=== PATIENT | female | born 1995 | race Caucasian/White ===

== ENCOUNTER → 2016-03-30 | Outpatient (CLI) | payer OTHER ==
[~2016-03-30] MED LIST: ANUS2.5C2 PR; DOCU10CA PO; MOM30SS PO; TYLE167L PO
--- NOTE | 2016-03-30 15:25 | REP ---
Clinical: Anatomical evaluation. Comparison: 01/02/2016 . Findings: Examination demonstrates a single live intrauterine in breech presentation. motion is identified by technologist. Placenta is noted posterior and grade the Z without evidence for placenta previa or abruption. Amniotic fluid volume is normal. Cervix measures row 3.7 cm in length and appears closed. No evidence for nuchal cord. Gestational age by LMP 20 weeks 5 days with LISA 08/12/2016. Gestational age by current measurements 19 weeks 5 days with LISA 08/19/2016 . FHR equals 128 beats per minute. BPD 4.1 cm 18 weeks 3 days HC 17.3 cm 19 weeks 6 days AC 14.8 cm 20 weeks 0 days FL 3.2 cm 20 weeks 0 days HL 3.0 cm 19 weeks 6 days HC/AC ratio 1.17 Estimated weight 324 grams ( 23rd percentile). Anatomical assessment demonstrates normal structures including cranium, choroid plexus, cavum, cerebellum/posterior fossa, facial features, lungs, diaphragm, stomach, cord insertion/three-vessel cord, kidneys/bladder, spine, and extremities. Impression: Single live intrauterine in breech presentation demonstrating appropriate interval growth. Limited evaluation of the heart and ventricular outflow tracts noted. Remainder of the anatomical assessment is complete and normal. Signed by Phoenix Baker MD 03/30/2016 03:17 P
== END ==
LOC: M RAD 14:08
PROVIDERS: ATTEND Advanced Practice Midwife
DX: Z34.82 Encounter for supervision of other normal pregnancy, second trimester (principal)

== ENCOUNTER → 2016-04-15 | Outpatient (CLI) | payer OTHER ==
--- NOTE | 2016-04-15 18:07 | REP ---
OB ULTRASOUND: REASON FOR EXAM: Followup anatomy. Prior examination of 03/30/2016 failed to optimally visualize four chamber heart and outflow tracts. Multiple ultrasonographic images of the gravid uterus show a single living intrauterine gestation in the cephalic presentation. Doppler interrogation of the heart shows a heart rate of 144 beats per minute. The placenta is posterior and not low lying. The subjective amniotic fluid volume is within normal limits. The cervix measured approximately 4 cm in length and is closed. Four chamber heart and both right and left ventricular outflow tracts were seen normally completing the anatomical screen. BPD 5 cm = 21 weeks 2 days HC 19 cm = 21 weeks 2 days AC 16.8 cm = 21 weeks 5 days FL 3.9 cm = 22 weeks 3 days Estimated weight is 463 grams which is within the 66th percentile for a 21 week 3 day gestational age. IMPRESSION: Single living intrauterine gestation as described above with an estimated gestational age of 21 weeks 5 days via composite criteria and an estimated date of delivery of 08/21/2016 by today's exam. anatomical screen was completed with a normal appearing four chamber heart and normal appearing right and left ventricular outflow tracts. Signed by Pola Waite DO 04/16/2016 11:15 A
== END ==
LOC: M RAD 13:50
PROVIDERS: ATTEND Advanced Practice Midwife
DX: Z34.82 Encounter for supervision of other normal pregnancy, second trimester (principal); Z3A.21 21 weeks gestation of pregnancy

== ENCOUNTER 2016-06-07 11:14 | Outpatient (CLI) | payer OTHER ==
[2016-06-07 11:40] VITALS: BP 135/81
[2016-06-07] MEDS ORDERED: ACET50TA PO (11:51)
[2016-06-07] MEDS ORDERED: PERCOCET 5MG/325MG TAB PO ONE (12:00)
--- NOTE | 2016-06-07 12:36 | REP ---
Bilateral renal ultrasound: The kidneys are normal size. The right kidney measures 3.7 x 4.6 of 5.7 cm. Left kidney measures 11.4 by 4.6 of 5.2 cm. The renal cortical echogenicity is normal bilaterally. There is no hydronephrosis on the right on the left. No renal calculi are identified by ultrasound. There is a 1.7 cm cyst in the upper pole of the right kidney. There are no cysts in the left kidney. No renal masses are identified on the right on the left. Bladder ultrasound: The bladder appears adequately distended. There are bilateral ureteral jets into the urinary bladder with color Doppler ultrasound assessment.. No bladder wall masses are identified. Impression: There is no hydronephrosis. There are no renal calculi. With color Doppler assessment there are bilateral ureteral jets into the urinary bladder. There is a 1.7 cm right renal upper pole cyst. The kidneys and bladder are otherwise unremarkable. During the examination is noted at the the patient is . The heart rate is 160 beats per minute. Signed by Darrell Mcgarry MD 06/07/2016 12:27 P
[2016-06-07] MEDS ORDERED: OXYC1TAB23 PO (13:24)
== END 2016-06-07 13:32 | disposition home or self-care (01) ==
LOC: M LDO 11:14
PROVIDERS: ATTEND Specialist
DX: O26.893 Other specified pregnancy related conditions, third trimester (principal); Z3A.30 30 weeks gestation of pregnancy; M46.1 Sacroiliitis, not elsewhere classified

== ENCOUNTER → 2016-07-07 | Outpatient (CLI) | payer OTHER ==
[~2016-07-07] MED LIST changes: +ACET50TA PO; +OXYC1TAB23 PO
== END ==
LOC: M SMT 15:21
PROVIDERS: ATTEND Advanced Practice Midwife
DX: O99.843 Bariatric surgery status complicating pregnancy, third trimester (principal)

== ENCOUNTER → 2016-07-14 | Outpatient (CLI) | payer OTHER ==
--- NOTE | 2016-07-14 21:03 | REP ---
Clinical: Growth evaluation. Comparison: 04/15/2016 . Findings: Examination demonstrates a single live intrauterine in cephalic presentation. motion is identified by technologist. Placenta is noted posteriorly and grade one without evidence for placenta previa or abruption. Amniotic fluid volume is normal. Cervix measures 3.1 cm in length and appears closed. No evidence for nuchal cord. Gestational age by first US 34 weeks 2 days with LISA 08/23/2016 . Gestational age by current measurements 33 weeks 1 day with LISA 08/31/2016 . FHR equals 139 beats per minute. BPD 8.0 cm 32 weeks 0 days HC 30.4 cm 33 weeks 5 days AC 29.9 cm 33 weeks 6 days FL 6.6 cm 33 weeks 6 days HL 5.9 cm 34 weeks 1 day HC/AC ratio 1.02 Estimated weight 2245 grams ( 36 percentile). Amniotic fluid index equals 14.7 cm (8.1 - 24 20). Umbilical cord SD ratio equals 1.81 (2.00 - 3.00). Impression: 1. Single live intrauterine in cephalic presentation demonstrating appropriate interval growth. 2. Umbilical cord SD ratio minimally below normal range. Signed by Phoenix Baker MD 07/14/2016 08:54 P
== END ==
LOC: M RAD 14:17
PROVIDERS: ATTEND Advanced Practice Midwife
DX: K91.2 Postsurgical malabsorption, not elsewhere classified (principal); Z3A.33 33 weeks gestation of pregnancy

== ENCOUNTER → 2016-07-21 | Outpatient (REF) | payer OTHER | LOC: M LAB REF 17:14 | PROVIDERS: ATTEND Advanced Practice Midwife | DX: Z34.83 Encounter for supervision of other normal pregnancy, third trimester (principal) ==

== ENCOUNTER 2016-07-31 16:09 | Outpatient (CLI) | payer OTHER ==
[~2016-07-31] VITALS: Ht 154.9 cm; Wt 97.0 kg
[2016-07-31 16:26] VITALS: BP 115/58
== END 2016-07-31 18:11 | disposition home or self-care (01) ==
LOC: M LDO 16:09
PROVIDERS: ATTEND Specialist
DX: O26.893 Other specified pregnancy related conditions, third trimester (principal); Z3A.36 36 weeks gestation of pregnancy; N89.9 Noninflammatory disorder of vagina, unspecified; R10.9 Unspecified abdominal pain

== ENCOUNTER → 2016-07-31 | Outpatient (CLI) | payer OTHER ==
--- NOTE | 2016-07-31 17:09 | REP ---
Third trimester obstetrical ultrasound: There is a single intrauterine gestation in a vertex presentation. There is movement and cardiac activity. The heart rate is 153 beats per minute. The placenta is posterior. There is no placenta previa or abruptio. The placenta demonstrates grade III maturity. The amniotic fluid volume subjectively is normal. The amniotic fluid index 10.9 (7.6 - 24.6). The cervix is 1.7 cm length. By today's ultrasound the gestational age is 35 weeks 2 days with an LISA of 09/02/2016. By the first ultrasound during this gestation the gestational age is 36 weeks 5 days and by LMP 38 weeks 2 days. weight is 2605 grams (5 pounds, 11 ounces). This is the 28th percentile for 30 weeks 5 days and the 11th percentile for 30 dB few days. Umbilical artery Doppler assessment: SD ratio 1.81 (1.74 - 2.74). Resistive index 0.45 five (0.59 - 0.75). Umbilical artery diastolic flow velocity 30.8 cm/sec. Resistive index is slightly below the normal range. The ST ratio and diastolic flow velocity are in the normal range. Signed by Darrell Mcgarry MD 07/31/2016 05:00 P
== END ==
LOC: M RAD 15:26
PROVIDERS: ATTEND Advanced Practice Midwife
DX: O99.843 Bariatric surgery status complicating pregnancy, third trimester (principal); Z3A.36 36 weeks gestation of pregnancy

== ENCOUNTER 2016-08-13 09:53 | Inpatient (IN) | payer OTHER ==
[~2016-08-13] VITALS: Ht 154.9 cm; Wt 12.0 kg
[2016-08-13 10:26] VITALS: BP 137/77
[2016-08-13] MEDS ORDERED: PROMETHAZINE INJ 25 MG/ML VIAL (J2550) IV PRN (13:45)
[2016-08-13] MEDS ORDERED: BUTORPHANOL 2 MG/ML INJ (J0595) IV ONE (14:00)
[2016-08-13 14:16] VITALS: BP 121/61
[2016-08-13] MEDS ORDERED: OXYTOCIN 30 UNITS IN 0.9% NaCl 500ML IV BAG (J2590) As Ordered ONE (14:18)
[2016-08-13 14:27] VITALS: BP 147/85
[2016-08-13 14:28] LABS: MEAN CORPUSCULAR HGB CONC 30.9 g/dl (32.0-36.5); MEAN CORPUSCULAR VOLUME 64.8 fl (80.0-96.0); RED CELL DISTRIBUTION WIDTH 17.4 % (11.5-14.5)
[2016-08-13 14:42] VITALS: BP 151/89
[2016-08-13] MEDS ORDERED: OXYTOCIN DRIP 30 UNITS in APPROPRIATE DILUENT 1 EA IV SCH (15:25)
[2016-08-13] MEDS ORDERED: RHOGAM 300 MCG (1500 IU) INJ (J2790) IM SCH (15:30)
[2016-08-13] MEDS ORDERED: MOM 30ML SUSPENSION UDC PO PRN (15:30)
[2016-08-13] MEDS ORDERED: ANUSOL HC CREAM 30GM TOP PRN (15:30)
[2016-08-13] MEDS ORDERED: ACETAMINOPHEN 500 MG TAB PO PRN (15:30)
[2016-08-13] MEDS ORDERED: METHYLERGONOVINE MALEATE 0.2 MG TAB PO PRN (15:30)
[2016-08-13] MEDS ORDERED: MEASLES,MUMPS,RUBELLA VACCINE INJ (MMR-II) (90707) SC SCH (15:30)
[2016-08-13] MEDS ORDERED: DOCUSATE SODIUM 100 MG CAP PO PRN (15:30)
[2016-08-13] MEDS ORDERED: DIBUCAINE 1% OINTMENT 30GM TOP PRN (15:30)
--- NOTE | 2016-08-13 18:38 | DN ---
DATE: 08/13/2016 TIME OF : 1420. GENDER: Female. SCORES: 8 and 9. WEIGHT: 2674 grams, 6 pounds 2 ounces. ANESTHESIA: None. LACERATION: None. COUNTS: 5 laparotomy sponges accounted for prior to and after delivery. ESTIMATED BLOOD LOSS: 300 mL. DELIVERY NOTE: On 08/13/2016, at 1420, Ms. Waite, a 21-year-old 2, now para 2, had a spontaneous vaginal delivery of a liveborn female infant, scores 8 and 9, and weight 6 pounds, 2 ounces or 2674 grams. Head was delivered STEPHANIE over an intact peritoneum, followed by delivery of right anterior shoulder, left posterior shoulder and corpus. was handed to mother with good cry. Cord was clamped times two and was cut by patients support person under my direction. Cord blood was obtained. Placenta was then drained and delivered grossly intact. A premixed bag of 500 mL of normal saline with 30 units of Pitocin was bolused, along with uterine massage. Her uterus was firm. On inspection the cervix, vagina, perineum were grossly intact and hemostatic. Mother and baby to recovery in stable condition. Mom has decided to name her daughter
[2016-08-13 18:41] VITALS: BP 150/72
--- NOTE | 2016-08-13 18:46 | HPE ---
DATE OF ADMISSION: 08/13/2016 REASON FOR ADMISSION: Labor. HISTORY OF THE PRESENT ILLNESS: Ms. aWite is a 21-year-old, 2, para 1 , who presents at 38 weeks 4 days estimated gestational age by a first trimester ultrasound, here with complaints of contractions. She reports active movements. Denies any vaginal bleeding or leakage of fluid. course has been unremarkable. She initiated care in her first trimester and has been appropriate throughout. PAST MEDICAL HISTORY: She has a history of asthma. PAST SURGICAL HISTORY: She has had gastric bypass in 2012. PAST OBSTETRICAL HISTORY: She has had one delivery at 35 weeks. She has proven to 5 pounds 11 ounces. SOCIAL HISTORY: Denies any alcohol, tobacco or drug use during her . PHYSICAL EXAMINATION: Her vital signs are stable. She has a category 1 heart rate tracing with contractions on tocometer. General Appearance: Appears to be uncomfortable with contractions. No acute distress. Her lungs were clear to auscultation bilaterally. Cardiovascular: Heart regular rate and rhythm. Abdomen: Soft, gravid, nontender. Cervical Exam: She is 3-4 cm dilated, 80% effaced, -2 station. Shortly after exam, she had spontaneous rupture, meconium-stained amniotic fluid. LABORATORY: Her blood type is A negative, rubella is immune, RPR is nonreactive. Hepatitis surface antigen is negative. HIV is negative. Hepatitis C was nonreactive. Chlamydia and Gonorrhea screens were negative. She is GBS negative. ASSESSMENT: 1. This patient is a 21-year-old 2, para 1 at 38 weeks and 4 days by first trimester ultrasound, here with spontaneous rupture of membranes. 2. Reassuring status. PLAN: 1. Admit to labor and delivery. CBC, RPR, type and screen. 2. Anticipate spontaneous vaginal delivery. MTDD
[2016-08-14 06:08] VITALS: BP 131/83
[2016-08-14] MEDS: PRENATAL VITAMINS CHEWABLE TABLET PO SCH (07:54)
[2016-08-14 18:00] VITALS: BP 130/70
[2016-08-15 06:00] VITALS: BP 116/77
[2016-08-15] MEDS: PRENATAL VITAMINS CHEWABLE TABLET PO SCH (08:03)
[2016-08-15] MEDS ORDERED: ACET50TA PO (12:39)
[2016-08-15] MEDS ORDERED: PRENTAB9 PO (12:39)
== END 2016-08-15 13:15 | disposition home or self-care (01) | DRG 560 ==
LOC: M LDO 09:53 → M LDI 13:29 → M OBS 17:03
PROVIDERS: ADMIT Obstetrics & Gynecology; ATTEND Obstetrics & Gynecology
PROC: 10E0XZZ Delivery of Products of Conception, External Approach (ICD-10-PCS; principal; 2016-08-13)
DX: O77.0 Labor and delivery complicated by meconium in amniotic fluid (principal); Z37.0 Single live birth; Z3A.38 38 weeks gestation of pregnancy; Z87.51 Personal history of pre-term labor

== ENCOUNTER → 2017-11-01 | Outpatient (CLI) | payer OTHER ==
[2017-11-01 18:38] LABS: HCG, SERUM QUANTITATIVE 5 MIU/ML
== END ==
LOC: M SMT 14:06
DX: O02.1 Missed abortion (principal)
CPT/HCPCS: 84702

== ENCOUNTER → 2018-10-07 | Outpatient (CLI) | payer OTHER ==
[~2018-10-07] MED LIST changes: -ACET50TA PO; +MAPA500T2 PO; +PRENTAB9 PO
[2018-10-07 18:01] LABS: BASO # 0.1 10^3/uL (0.0-0.2); BASO % 0.6 % (0.0-1.0); EOS # 0.1 10^3/uL (0.0-0.50); EOS % 1.2 % (0.0-3.0); HEMOGLOBIN 8.6 g/dl (12.0-15.5); LYMPH # 2.6 10^3/uL (1.5-6.5); LYMPH % 22.6 % (24.0-44.0); MEAN CORPUSCULAR HEMOGLOBIN 18.1 pg (27.0-33.0); MEAN CORPUSCULAR HGB CONC 28.7 g/dl (32.0-36.5); MONO # 0.7 10^3/uL (0.0-0.8); MONO % 5.9 % (0.0-5.0); NEUTROPHILS # 8.1 10^3/uL (1.8-7.7); NEUTROPHILS % 69.4 % (36.0-66.0); PLATELET COUNT, AUTOMATED 456 10^3/uL (150-450); RED BLOOD COUNT 4.76 10^6/uL (4.00-5.40); WHITE BLOOD COUNT 11.6 10^3/uL (4.0-10.0)
[2018-10-10 11:22] LABS: HIV 1&2 SCREEN CENTAUR NEGATIVE (NEGATIVE); RUBELLA IgG QUALITATIVE IMMUNE (IMMUNE)
== END ==
LOC: M SMT 14:43
PROVIDERS: ATTEND Advanced Practice Midwife
DX: Z34.80 Encounter for supervision of other normal pregnancy, unspecified trimester (principal); Z3A.00 Weeks of gestation of pregnancy not specified

== ENCOUNTER → 2018-10-25 | Outpatient (REF) | payer OTHER ==
[2018-10-25 22:51] LABS: CHLAMYDIA DNA AMPLIFICATION NEGATIVE (NEGATIVE); GC DNA AMPLIFICATION NEGATIVE (NEGATIVE)
== END ==
LOC: M LAB REF 17:06
PROVIDERS: ATTEND Advanced Practice Midwife
DX: O99.841 Bariatric surgery status complicating pregnancy, first trimester (principal); Z3A.00 Weeks of gestation of pregnancy not specified

== ENCOUNTER → 2018-12-02 | Outpatient (CLI) | payer OTHER | LOC: M SMT 10:01 | PROVIDERS: ATTEND Advanced Practice Midwife | DX: Z34.82 Encounter for supervision of other normal pregnancy, second trimester (principal) ==

== ENCOUNTER → 2018-12-16 | Outpatient (CLI) | payer OTHER ==
--- NOTE | 2018-12-16 15:34 | REP ---
Clinical: Anatomical evaluation. Comparison: None . Findings: Examination demonstrates a single live intrauterine in variable presentation. motion is identified by technologist. Placenta is noted posterior and grade zero without evidence for placenta previa or abruption. Amniotic fluid volume is normal. Cervix measures 4.0 cm in length and appears closed. 1 cm Nabothian cyst noted. No evidence for nuchal cord. Gestational age by LMP 18 weeks 3 days with LISA 05/16/2019 . Gestational age by current measurements 18 weeks 3 days with LISA 05/16/2019 . FHR equals 146 beats per minute. BPD 4.0 cm 18 weeks 0 days HC 15.2 cm 18 weeks 1 day AC 13.1 cm 18 weeks 4 days FL 2.8 cm 18 weeks 4 days HL 2.7 cm 18 weeks 5 days HC/AC ratio 1.17 Estimated weight 244 grams ( 51st percentile). Anatomical assessment demonstrates normal structures including cranium, choroid plexus, cavum, cerebellum/posterior fossa, facial features, lungs, four-chamber heart, diaphragm, stomach, cord insertion/three-vessel cord, kidneys/bladder, and extremities. Impression: 1. Single live intrauterine in variable presentation demonstrating appropriate interval growth. 2. Limited evaluation of the cardiac ventricular outflow tracts and spine due to positioning. Remainder of the anatomical assessment is complete and normal. 3. 1 cm cervical cyst consistent with Nabothian cysts. Electronically Signed by Phoenix Baker MD 12/16/2018 03:25 P
== END ==
LOC: M RAD 13:52
PROVIDERS: ATTEND Advanced Practice Midwife
DX: Z34.82 Encounter for supervision of other normal pregnancy, second trimester (principal)

== ENCOUNTER → 2019-01-27 | Outpatient (CLI) | payer OTHER | LOC: M WHC 10:20 | PROVIDERS: ATTEND Advanced Practice Midwife | DX: Z34.92 Encounter for supervision of normal pregnancy, unspecified, second trimester (principal); Z53.9 Procedure and treatment not carried out, unspecified reason ==

== ENCOUNTER → 2019-02-24 | Outpatient (CLI) | payer OTHER ==
--- NOTE | 2019-02-24 14:35 | REP ---
OBSTETRIC SONOGRAPHY: HISTORY: Supervision of . Followup anatomy. Comparison study January 26, 2019. FINDINGS: Scanning through the gravid uterus demonstrates a viable single intrauterine gestation in a cephalic lie. motion is observed and heart rate is recorded at 147 beats per minute. A posterior grade 1 placenta is seen without evidence of previa. Amniotic fluid is subjectively normal. Closed cervical length measures 2.8 cm. No extrauterine abnormalities observed. There has been appropriate interval growth. No anomaly is seen. The following anatomic structures are identified and felt to be unremarkable: cranium, choroid plexus, cavum, cerebellum posterior fossa, face and profile, four-chamber heart with left and right ventricular outflow tract views, diaphragm, left-sided stomach, three-vessel cord, kidneys and bladder, spine. Biometry Chart: BPD 6.8 cm = 27.4 weeks HC 26.3 cm = 28.6 weeks AC 23.7 cm = 28.0 weeks FL 5.8 cm = 30.3 weeks HC/AC ratio normal 1.11. Cephalic index normal 0.70. Estimated weight 1287 grams/2 pounds 13 ounces/51st percentile for 28.4 weeks. RUTHIE normal 18.2 cm. Closed cervical length 2.7 cm. IMPRESSION: Viable single intrauterine gestation at 28.5 weeks by today's composite sonographic criteria. Expected gestational age estimate based on prior sonography is 28.4 weeks. LISA by prior sonography 05/16/2019. In conjunction with prior study, anatomic survey is felt to be complete. There is appropriate interval growth.
== END ==
LOC: M WHC 10:24
PROVIDERS: ATTEND Advanced Practice Midwife
DX: Z34.92 Encounter for supervision of normal pregnancy, unspecified, second trimester (principal); Z36.2 Encounter for other antenatal screening follow-up; Z3A.28 28 weeks gestation of pregnancy

== ENCOUNTER → 2019-02-24 | Outpatient (CLI) | payer OTHER ==
[2019-02-24 18:35] LABS: HEMATOCRIT 29.2 % (36.0-47.0); HEMOGLOBIN 8.1 g/dl (12.0-15.5); MEAN CORPUSCULAR HEMOGLOBIN 17.6 pg (27.0-33.0); MEAN CORPUSCULAR HGB CONC 27.7 g/dl (32.0-36.5); MEAN CORPUSCULAR VOLUME 63.6 fl (80.0-96.0); PLATELET COUNT, AUTOMATED 455 10^3/uL (150-450); RED BLOOD COUNT 4.59 10^6/uL (4.00-5.40)
[2019-02-24 18:42] LABS: CALCIUM LEVEL 8.9 MG/DL (8.5-10.1)
== END ==
LOC: M PLALAB 13:45
PROVIDERS: ATTEND Advanced Practice Midwife
DX: Z98.84 Bariatric surgery status (principal)

== ENCOUNTER 2019-03-03 07:55 | Outpatient (CLI) | payer OTHER ==
[~2019-03-03] VITALS: Ht 152.4 cm; Wt 107.3 kg
[2019-03-03 08:10] VITALS: BP 132/83
[2019-03-03] MEDS ORDERED: IRON SUCROSE 500 MG in NS 250 ML OVER 4 HRS IV ONE ×2 (08:15→09:00)
[2019-03-03 09:07] VITALS: BP 126/63
[2019-03-03 10:09] VITALS: BP 117/60
[2019-03-03 11:14] VITALS: BP 143/87
[2019-03-03 12:20] VITALS: BP 134/64
[2019-03-03 12:44] VITALS: BP 118/58
== END 2019-03-03 12:45 | disposition home or self-care (01) ==
LOC: M INFU 07:55
PROVIDERS: ATTEND Advanced Practice Midwife
DX: D64.9 Anemia, unspecified (principal); Z88.6 Allergy status to analgesic agent
CPT/HCPCS: 96365; 96366; J1756

== ENCOUNTER → 2019-03-24 | Outpatient (CLI) | payer OTHER ==
--- NOTE | 2019-03-24 17:45 | REP ---
Clinical: Growth evaluation. Comparison: 02/24/2019 . Findings: Examination demonstrates a single live intrauterine in cephalic presentation. motion is identified by technologist. Placenta is noted posterior and grade I without evidence for placenta previa or abruption. Amniotic fluid volume is normal. Cervix measures 2.8 cm in length and appears closed. No evidence for nuchal cord. Gestational age by LMP 32 weeks 3 days with LISA 05/16/2019 . Gestational age by current measurements 32 weeks 2 days with LISA 05/17/2019 . FHR equals 143 beats per minute. BPD 7.8 cm 31 weeks 2 days HC 29.9 cm 33 weeks 1 day AC 27.2 cm 31 weeks 2 days FL 6.5 cm 33 weeks 4 days HL 5.6 cm 32 weeks 4 days HC/AC ratio 1.10 Estimated weight 1915 grams ( 39th percentile). Amniotic fluid index: 12.1 cm (8.5 - 24.3). Impression: Single live intrauterine in cephalic presentation demonstrating appropriate interval growth. No gross abnormalities are identified. Electronically Signed by Phoenix Baker MD 03/24/2019 05:38 P
== END ==
LOC: M WHC 13:46
PROVIDERS: ATTEND Advanced Practice Midwife
DX: O99.843 Bariatric surgery status complicating pregnancy, third trimester (principal); Z3A.32 32 weeks gestation of pregnancy

== ENCOUNTER → 2019-04-17 | Outpatient (REF) | payer OTHER | LOC: M SFHCWAGY 10:12 | PROVIDERS: ATTEND Advanced Practice Midwife | DX: O99.843 Bariatric surgery status complicating pregnancy, third trimester (principal) ==

== ENCOUNTER → 2019-04-26 | Outpatient (CLI) | payer OTHER ==
--- NOTE | 2019-04-27 07:41 | REP ---
Clinical: Anatomical evaluation. Comparison: 03/24/2019 . Findings: Examination demonstrates a single live intrauterine in cephalic presentation. motion is identified by technologist. Placenta is noted posterior and grade I I without evidence for placenta previa or abruption. Amniotic fluid volume is normal. Cervix measures 2.7 cm in length and appears closed. No evidence for nuchal cord. Gestational age by LMP 37 weeks 1 day with LISA 05/16/2019 . Gestational age by current measurements 36 weeks 2 days with LISA 05/22/2019 . FHR equals 153 beats per minute. Estimated weight 3034 grams ( 49th percentile). Amniotic fluid index: 13.9 cm Impression: single live intrauterine in cephalic presentation demonstrating appropriate interval growth. No gross abnormalities are identified.
== END ==
LOC: M WHC 13:38
PROVIDERS: ATTEND Advanced Practice Midwife
DX: O99.333 Smoking (tobacco) complicating pregnancy, third trimester (principal); F17.200 Nicotine dependence, unspecified, uncomplicated; O99.843 Bariatric surgery status complicating pregnancy, third trimester; Z3A.37 37 weeks gestation of pregnancy

== ENCOUNTER 2019-05-05 05:20 | Inpatient (IN) | payer OTHER ==
[~2019-05-05] VITALS: Ht 154.9 cm; Wt 113.3 kg
[2019-05-05] VITALS (10 sets, daily range): BP systolic 124–147; BP diastolic 60–79
--- NOTE | 2019-05-05 09:01 | HPEPDOC ---
Obstetrical History & Physical General Date of Admission May 05, 2019 at 08:38 Primary Care Physician: JORGE GILES CNM History of Present Illness Patient is a 24-year-old female who is a at 38 weeks gestation with an LISA of 05/19/19 based off of her first trimester ultrasound. She initiated care in her first trimester. Her has been complicated by a history of delivery, PCOS, obesity, and gastric bypass. She received Violet injections for her history of delivery. She presents with complaints of contractions. She denies vaginal bleeding or leaking of fluid. She reports active movement. Chief Complaint: Active Labor Information Provided By: Patient Age: 24 : 4 Term: 1 Pre-term: 1 Abortions: 1 Livin Care Care: Good Care Dating Final EDC: May 19, 2019 Final EDC by: 1st trimester (US) EGA at Admission: 38 Antepartum Course Diagnos(e)s history of delivery obesity PCOS Prior bariatric surgery Height (inches): 61 Pre- weight (lbs.): 231 Admission Weight (lbs.): 249 Change in Weight (lbs.): 18 Past Medical History Past Obstetrical History #1: Past Obstetrical History: Primgravida Gestation: 35 Type of Delivery: Spontaneous Vaginal Del. (October 2013) Sex of Infant: Male (5 lbs 11 oz. ) Weight of (grams): 2317 Complications: Yes Past Obstetrical History #2: Past Obstetrical History: Multigravida Gestation: 39 Type of Delivery: Spontaneous Vaginal Del. (07/2016) Sex of Infant: Female (6 lbs 1 oz) Complications: No VISITOR USE ASSISTANT History: Spontaneous , History of STD Past Medical History Medical History Obesity PCOS Surgical History: Other (gastric bypass) Family History Significant Family History: Cancer (breast cancer), Hypertension Social History Marital Status: Single Family situation: Spouse/partner home Psychosocial History: Anxiety, Depression * Smoker: current smoker (vapes) Alcohol: Denies Drugs: denies (has used medical marijuana in the past) Abuse Violence Screening Have you been hit/kicked/slapp: No Have you been sexually assault: No Imunizations Tdap status: current Influenza Status: current Allergies Coded Allergies: amoxicillin (Verified Allergy, Mild, RASH, 03/03/19) azithromycin (Verified Allergy, Mild, RASH, 03/03/19) clavulanic acid (Verified Allergy, Mild, RASH, 03/03/19) ibuprofen (Verified Allergy, Mild, RASH, 03/03/19) naproxen (Verified Allergy, Mild, RASH, 05/05/19) sulfamethoxazole (Verified Allergy, Mild, RASH, 03/03/19) trimethoprim (Verified Allergy, Mild, RASH, 03/03/19) Penicillins (Verified Allergy, Unknown, 03/03/19) Medications No Active Prescriptions or Reported Meds Physical Examination Physical Examination GENERAL: Alert and oriented times three. BREAST: . ABDOMEN: Gravid and non-tender to touch. FETUS: Is vertex (VTX) by sterile vaginal examination (SVE), fetus is vertex (VTX) by Luiz. HEART RATE: Regular rate and rhythm. LUNGS: Clear to auscultation (CTA). EXTREMITIES: No edema. No clonus. Deep tendon reflexes (DTRs) + 2. Vital Signs/I&O Vital Signs Date Time Temp Pulse Resp B/P (MAP) Pulse Ox O2 Delivery O2 Flow Rate FiO2 05/05/19 08:40 98.7 18 05/05/19 05:39 87 135/73 (93) Laboratory Data 24H LABS Laboratory Tests 2 05/05/19 08:39: Serology Scanned Report Hepatitis B Testing Urine Culture: No Growth Pertinent Laboratoy Data Blood Type: A- RBC Antibody Screen: Negative HIV: Negative Hepatitis B: Negative Hepatitis C: Negative Rapid Plasma Reagin: Nonreactive Rubella: Immune Chlamydia/Gonorrhea: Negative Group B Streptococcus: Negative Quad Screen Test: Negative Diag/Inter Therapy Received Violet injections for history of delivery Anatomy Ultrasound Ultrasound Date: Apr 26, 2019 Placenta Location: Posterior Normal Anatomy: Yes Placenta Previa: No Estimated Weight (grams): 3034 Vaginal Examination Dilation: 5 cm (5- cm) Effacement: 100% Station: -2 Cervical Consistency: Soft Cervical Position: Anterior Presentation: Cephalic presentation Position: Vertex (occiput) Assessment Heart Rate (FHR): 130 Variability: Moderate Accelerations: Positive Decelerations: None Tocometer Contractions: Yes Frequency: every 3-7 min. Strength: palpated as moderate Multi-drug resistant Organism: No history of MDRO Assessment/Plan Assessment IUP at 38 weeks gestation active labor Category I FHR tracing GBS negative PCOS Plan Admit to L&D. OOB ad kelsie. Diet: regular. Group B Streptococcus (GBS) negative. Labs and intravenous (IV) per unit protocol. Lactated Ringers (LR): Bolus PRN for distress or if patient desires epidural. Anticipate cervical change and . C-S as appropriate. JORGE GILES CNM May 05, 2019 09:01
[2019-05-05 09:20] LABS: HEMATOCRIT 29.5 % (36.0-47.0); HEMOGLOBIN 8.8 g/dl (12.0-15.5); MEAN CORPUSCULAR HEMOGLOBIN 20.1 pg (27.0-33.0); MEAN CORPUSCULAR HGB CONC 29.8 g/dl (32.0-36.5); MEAN CORPUSCULAR VOLUME 67.5 fl (80.0-96.0); PLATELET COUNT, AUTOMATED 326 10^3/uL (150-450); RED BLOOD COUNT 4.37 10^6/uL (4.00-5.40); WHITE BLOOD COUNT 13.4 10^3/uL (4.0-10.0)
[2019-05-05] MEDS ORDERED: OXYTOCIN 30 UNITS IN 0.9% NaCl 500ML IV BAG (J2590) As Ordered ONE (09:39)
--- NOTE | 2019-05-05 11:26 | IPNPDOC ---
Obstetrical Progress Note Date of Service May 05, 2019 Subjective Patient reports painful contractions. Does not want anything for pain management. Objective Vital Signs Date Time Temp Pulse Resp B/P (MAP) Pulse Ox O2 Delivery O2 Flow Rate FiO2 05/05/19 08:40 98.7 18 05/05/19 05:39 87 135/73 (93) Assessment Heart Rate (FHR): 135 Variability: Moderate Accelerations: Positive Decelerations: None Heart Rate Tracing: Category I Tocometer Contractions: Yes Frequency: regular Strength: palpated as strong Sterile Vaginal Examination Dilation: 7 cm Effacement (%): 100% Station: -1 Postion/Presentation: Cephalic presentation Assessment and Plan Age: 24 : 4 Term: 1 Pre-term: 1 Abortions: 1 Livin EGA at Admission: 38 Status: Reassuring Group B Streptococcus: Negative Anticipate: Vaginal Delivery JORGE GILES CNM May 05, 2019 11:26
[2019-05-05] MEDS ORDERED: MORPHINE 4 MG/ML 1ML VIAL/SYRINGE (J2270) As Ordered ONE (12:21)
[2019-05-05] MEDS ORDERED: OXYTOCIN DRIP 30 UNITS in IV 1 EA IV SCH (13:13)
[2019-05-05] MEDS ORDERED: ACETAMINOPHEN 500 MG TAB PO PRN (13:15)
[2019-05-05] MEDS ORDERED: MEASLES,MUMPS,RUBELLA VACCINE INJ (MMR-II) (90707) SC SCH (13:15)
[2019-05-05] MEDS ORDERED: ACETAMINOPHEN TAB 650MG DOSE (2X325MG) PO PRN (13:15)
[2019-05-05] MEDS ORDERED: METHYLERGONOVINE MALEATE 0.2 MG TAB PO PRN (13:15)
[2019-05-05] MEDS ORDERED: RHOGAM 300 MCG (1500 IU) INJ (J2790) IM SCH (13:15)
[2019-05-05] MEDS ORDERED: ANUSOL HC CREAM 30GM TOP PRN (13:15)
[2019-05-05] MEDS ORDERED: MORPHINE 4 MG/ML 1ML VIAL/SYRINGE (J2270) IV ONE (13:15)
[2019-05-05] MEDS ORDERED: DIBUCAINE 1% OINTMENT 30GM TOP PRN (13:15)
[2019-05-05] MEDS ORDERED: METHYLERGONOVINE MALEATE 0.2 MG/ML VIAL (J2210) IM ONE (13:15)
[2019-05-05] MEDS ORDERED: DOCUSATE SODIUM 100 MG CAP PO PRN (13:15)
[2019-05-05] MEDS ORDERED: LIDOCAINE 1% MDV 20ML VIAL INFIL ONE (13:15)
--- NOTE | 2019-05-05 14:10 | DNPDOC ---
[facility] Delivery Note Delivery Note DATE OF DELIVERY: 05/05/19 @ 11:52 PREDELIVERY DIAGNOSIS: 38 weeks' gestation and labor. POST DELIVERY DIAGNOSIS: Delivered. PROCEDURE: Spontaneous vaginal delivery. GEODETIC TECHNICIAN: Jorge Bryant CNM, MIMI ANESTHESIA: none. ESTIMATED BLOOD LOSS: 800 mL. FINDINGS: 6 pounds 8 ounces; 2950 grams; female infant, Score 8/9, hemorrhage, anemia. DELIVERY SUMMARY: Patient is a 24 year-old female who is now a at 38 weeks gestation who presented to L&D in active labor. She progressed to fully dilated at 1150 and pushed to a living female in the LOT position with no restitution at 1152. The baby was placed on the maternal abdomen active and crying. The cord was clamped after pulsation ceased and cut by the FOB. A 3- vessel cord was noted. The placenta delivered with a manual removal of the placenta at 1226. She received IV morphine to help with pain associated with removal. the placenta was delivered intact. Uterine hemostasis was achieved after 3 uterine passes to remove large clots in the uterus, IV Pitocin, fundal massage and a dose of IM Methergine. The patient tolerated the procedure. The vagina, cervix, and perineum were inspected and found to be intact. Mom plans to breast feed. They are naming their daughter Adrian. A repeat CBC was ordered for the morning due to the anemia that was present prior to delivery. Both mom and baby are in stable condition. All counts of instruments and sponges are correct. JORGE BRYANT CNM May 05, 2019 14:10
[2019-05-06 05:13] VITALS: BP 130/66
[2019-05-06 06:54] LABS: HEMATOCRIT 25.1 % (36.0-47.0); HEMOGLOBIN 7.3 g/dl (12.0-15.5); MEAN CORPUSCULAR HGB CONC 29.1 g/dl (32.0-36.5); MEAN CORPUSCULAR VOLUME 68.8 fl (80.0-96.0); PLATELET COUNT, AUTOMATED 268 10^3/uL (150-450); RED BLOOD COUNT 3.65 10^6/uL (4.00-5.40); WHITE BLOOD COUNT 12.4 10^3/uL (4.0-10.0)
[2019-05-06] MEDS ORDERED: ACET-683 PO (08:05)
--- NOTE | 2019-05-06 08:07 | IPNPDOC ---
Progress Note Date of Service: May 06, 2019 Day#: 1 Progress Note SUBJECT: She has been out of bed and showering. She denies any dizziness with movement. States she feels fine. She has been ambulating, voiding spontaneously without issue and tolerating regular diet. Breast feeding and formula feeding. OBJECTIVE: VITAL SIGNS: Within normal limits, afebrile. Alert and oriented times three. Breath sounds clear to auscultation. Heart rate: Regular rate and rhythm, no murmurs, rubs or gallops. Abdomen: Fundus firm at U-2. Soft, NTTP. Minimal lochia. ASSESSMENT: Day 1 PLAN: 1. Discharge to home today. 2. Encouraged iron and PNV for discharge. VS, I&O, 24H, Fishbone Vital Signs/I&O Vital Signs Date Time Temp Pulse Resp B/P (MAP) Pulse Ox O2 Delivery O2 Flow Rate FiO2 05/06/19 05:13 98.6 69 14 130/66 (87) 99 Room Air I&O- Last 24 Hours up to 6 AM 05/06/19 06:00 Output Total 1400 ml Balance -1400 ml Laboratory Data 24H LABS Laboratory Tests 2 05/05/19 08:39: Serology Scanned Report Hepatitis B Testing 05/05/19 09:08: Nucleated Red Blood Cells % (auto) 0.0, Syphilis Serology NONREACTIVE 05/06/19 05:55: Nucleated Red Blood Cells % (auto) 0.0 CBC/BMP Laboratory Tests 05/05/19 09:08 05/06/19 05:55 JORGE GILES CNM May 06, 2019 08:07
[2019-05-06] MEDS ORDERED: PRENATAL VITAMINS CHEWABLE TABLET PO SCH (09:00)
== END 2019-05-06 13:57 | disposition home or self-care (01) | DRG 541 ==
LOC: M LDO 05:20 → M LDI 08:38 → M OBS 14:25
PROVIDERS: ADMIT Advanced Practice Midwife; ATTEND Advanced Practice Midwife
PROC: 10E0XZZ Delivery of Products of Conception, External Approach (ICD-10-PCS; principal; 2019-05-05)
PROC: 10D17ZZ Extraction of Products of Conception, Retained, Via Natural or Artificial Opening (ICD-10-PCS; 2019-05-05)
DX: O99.214 Obesity complicating childbirth (principal); Z3A.38 38 weeks gestation of pregnancy; Z37.0 Single live birth; O99.844 Bariatric surgery status complicating childbirth; Z87.51 Personal history of pre-term labor; E66.9 Obesity, unspecified; O99.334 Smoking (tobacco) complicating childbirth; F17.290 Nicotine dependence, other tobacco product, uncomplicated; O99.02 Anemia complicating childbirth; D64.9 Anemia, unspecified; O72.1 Other immediate postpartum hemorrhage

== ENCOUNTER → 2019-11-16 | Outpatient (REF) | payer OTHER ==
[~2019-11-16] MED LIST changes: +ACET-683 PO
[2019-11-16 17:30] LABS: HEMATOCRIT 31.6 % (36.0-47.0); HEMOGLOBIN 8.8 g/dl (12.0-15.5); MEAN CORPUSCULAR HEMOGLOBIN 17.8 pg (27.0-33.0); MEAN CORPUSCULAR HGB CONC 27.8 g/dl (32.0-36.5); MEAN CORPUSCULAR VOLUME 63.8 fl (80.0-96.0); PLATELET COUNT, AUTOMATED 559 10^3/uL (150-450); RED BLOOD COUNT 4.95 10^6/uL (4.00-5.40); WHITE BLOOD COUNT 8.6 10^3/uL (4.0-10.0)
[2019-11-16 18:00] LABS: ALBUMIN 3.5 GM/DL (3.2-5.2); ALT/SGPT 16 U/L (12-78); BILIRUBIN,TOTAL 0.3 MG/DL (0.2-1.0); BLOOD UREA NITROGEN 15 MG/DL (7-18); CALCIUM LEVEL 8.7 MG/DL (8.5-10.1); CARBON DIOXIDE LEVEL 26 MEQ/L (21-32); CHLORIDE LEVEL 106 MEQ/L (98-107); CREATININE FOR GFR 0.75 MG/DL (0.55-1.30); FREE T4 0.84 NG/DL (0.76-1.46); GLOMERULAR FILTRATION RATE > 60.0 (>60); GLUCOSE, FASTING 71 MG/DL (70-100); POTASSIUM SERUM 4.9 MEQ/L (3.5-5.1); SODIUM LEVEL 136 MEQ/L (136-145); TOTAL PROTEIN 7.2 GM/DL (6.4-8.2)
[2019-11-17 10:03] LABS: FOLATE 13.5 NG/ML (>5.4); VITAMIN B12 LEVEL 406 PG/ML (247-911)
== END ==
LOC: M PLALAB 14:22
PROVIDERS: ATTEND Advanced Practice Midwife
DX: E66.01 Morbid (severe) obesity due to excess calories (principal); Z98.84 Bariatric surgery status

== ENCOUNTER → 2019-12-22 | Outpatient (CLI) | payer OTHER | LOC: M PLALAB 14:14 | PROVIDERS: ATTEND Advanced Practice Midwife | DX: Z12.4 Encounter for screening for malignant neoplasm of cervix (principal) ==

== ENCOUNTER → 2020-10-30 | Outpatient (CLI) | payer OTHER ==
--- NOTE | 2020-10-30 15:14 | REP ---
INDICATION: ABNORMAL UTERINE BLEEDING. COMPARISON: None. TECHNIQUE: Transvesical and transvaginal imaging FINDINGS: The uterus measures 8.8 x 3.9 x 4.7 cm. The parenchymal echo pattern is within normal limits. There is no evidence of a mass. The endometrial echo complex is within normal limits with a maximal thickness of 12 mm. Incidental note is made of nabothian cyst. The right ovary measures 3.5 x 3.6 x 3.2 cm. Within the right ovary there is an anechoic structure with a maximal dimension of 2.6 cm. This exhibits posterior wall enhancement and increased through transmission. The left ovary measures 2.7 x 1.8 x 3.2 cm and is within normal limits. Urinary bladder measures 6 x 4 x 8 cm. IMPRESSION: Dominant follicle versus small simple cyst right ovary as described above. <Electronically signed by Pola Waite > 10/30/20 [id number]
== END ==
LOC: M WHC 14:08
PROVIDERS: ATTEND Obstetrics & Gynecology
DX: N93.9 Abnormal uterine and vaginal bleeding, unspecified (principal)

== ENCOUNTER → 2020-10-30 | Outpatient (CLI) | payer OTHER ==
[2020-10-30 17:40] LABS: HEMOGLOBIN 8.8 g/dl (12.0-15.5); MEAN CORPUSCULAR HGB CONC 28.4 g/dl (32.0-36.5); MEAN CORPUSCULAR VOLUME 63.3 fl (80.0-96.0); PLATELET COUNT, AUTOMATED 395 10^3/uL (150-450); WHITE BLOOD COUNT 9.9 10^3/uL (4.0-10.0)
[2020-10-30 17:46] LABS: THYROID STIMULATING HORMONE 1.89 uIU/ML (0.358-3.740)
== END ==
LOC: M PLALAB 14:42
PROVIDERS: ATTEND Obstetrics & Gynecology
DX: N93.9 Abnormal uterine and vaginal bleeding, unspecified (principal)

== ENCOUNTER → 2021-02-26 | Outpatient (CLI) | payer OTHER | LOC: M LABSMTC 10:09 | PROVIDERS: ATTEND Anesthesiology | DX: Z01.818 Encounter for other preprocedural examination (principal); Z20.828 Contact with and (suspected) exposure to other viral communicable diseases ==

== ENCOUNTER → 2021-04-21 | Outpatient (CLI) | payer OTHER ==
[~2021-04-21] MED LIST changes: +VENL37.598 PO
== END ==
LOC: M LABSMTC 09:19
PROVIDERS: ATTEND Anesthesiology
DX: Z01.818 Encounter for other preprocedural examination (principal); Z11.52 Encounter for screening for COVID-19

== ENCOUNTER 2021-04-25 08:46 | Day surgery (SDC) | payer OTHER ==
[~2021-04-25] VITALS: Ht 154.9 cm; Wt 93.9 kg
[~2021-04-25 08:46] MED LIST changes: +LIDOCAINE 1% MDV 20ML VIAL SQ PRN; +LR 1,000 ML IV ONE; +ceFAZolin SOD 2 GM in IV 1 EA IV ONE
[2021-04-25] MEDS ORDERED: BUPIVACAINE HCL 0.25% 30ML VIAL As Ordered ONE (09:01)
[2021-04-25] MEDS ORDERED: METHYLENE BLUE 0.5% (5MG/ML) 10 ML AMP (PROVAYBLUE) As Ordered ONE (09:01)
[2021-04-25 09:38] LABS: HEMATOCRIT 34.1 % (36.0-47.0); HEMOGLOBIN 9.8 g/dl (12.0-15.5); MEAN CORPUSCULAR HEMOGLOBIN 18.3 pg (27.0-33.0); MEAN CORPUSCULAR HGB CONC 28.7 g/dl (32.0-36.5); MEAN CORPUSCULAR VOLUME 63.6 fl (80.0-96.0); PLATELET COUNT, AUTOMATED 433 10^3/uL (150-450); RED BLOOD COUNT 5.36 10^6/uL (4.00-5.40); WHITE BLOOD COUNT 5.7 10^3/uL (4.0-10.0)
[2021-04-25 10:08] LABS: HCG, SERUM QUALITATIVE NEGATIVE (NEGATIVE)
[2021-04-25] MEDS ORDERED: SCOPOLAMINE 1MG TRANSDERMAL PATCH As Ordered ONE (10:21)
[2021-04-25] MEDS ORDERED: ONDANSETRON 4MG/2ML VIAL As Ordered ONE (10:34)
[2021-04-25] MEDS ORDERED: LIDOCAINE 2% 100MG/5ML SDV (FOR ANES.) As Ordered ONE (10:34)
[2021-04-25] MEDS ORDERED: METOCLOPRAMIDE INJ 10MG/2ML VIAL (J2765 PER 1) As Ordered ONE (10:34)
[2021-04-25] MEDS ORDERED: SUGAMMADEX SODIUM 500 MG/5 ML VIAL (BRIDION) As Ordered ONE (10:34)
[2021-04-25] MEDS ORDERED: propofoL 200 MG/20 ML VIAL As Ordered ONE (10:34)
[2021-04-25] MEDS ORDERED: dexameTHASONE 4 MG/ML 1ML VIAL (J1100 PER 1MG) As Ordered ONE (10:34)
[2021-04-25] MEDS ORDERED: HYDROmorphone HCL 2MG/ML 1ML VIAL As Ordered ONE (10:34)
[2021-04-25] MEDS ORDERED: MIDAZOLAM INJ 2MG/2ML VIAL (J2250 PER 1MG) As Ordered ONE (10:34)
[2021-04-25] MEDS ORDERED: ROCURONIUM BROMIDE 50 MG/5 ML VIAL As Ordered ONE (10:34)
[2021-04-25] MEDS ORDERED: ACETAMINOPHEN 1000MG 100ML IV BTL (OFIRMEV) (J0131 PER 10MG) As Ordered ONE (10:34)
[2021-04-25] MEDS ORDERED: PERCOCET PO (12:00)
[2021-04-25] MEDS ORDERED: ONDANSETRON 4MG/2ML VIAL IV PRN ×2 (12:00→12:15)
[2021-04-25] MEDS ORDERED: LR 1,000 ML IV SCH ×2 (12:00→12:15)
[2021-04-25] MEDS ORDERED: COLA100C5 PO (12:00)
[2021-04-25] MEDS ORDERED: MORPHINE 4 MG/ML 1ML VIAL/SYRINGE (J2270) IV PRN (12:00)
[2021-04-25] MEDS ORDERED: PERCOCET 5MG/325MG TAB PO PRN ×3 (12:00→12:15)
[2021-04-25] MEDS ORDERED: fentaNYL 100 MCG/2 ML INJECTION IV PRN (12:15)
[2021-04-25] MEDS ORDERED: METOCLOPRAMIDE INJ 10MG/2ML VIAL (J2765 PER 1) IV PRN ×2 (12:15→15:35)
[2021-04-25 14:45] VITALS: BP 128/68
[2021-04-25] MEDS ORDERED: fentaNYL 250 MCG/5 ML INJECTION As Ordered ONE (14:48)
[2021-04-25 15:15] VITALS: BP 121/58
[2021-04-25] MEDS ORDERED: PROMETHAZINE INJ 25 MG/ML VIAL (J2550) IV PRN (15:20)
[2021-04-25 15:45] VITALS: BP 118/53
[2021-04-25 16:45] VITALS: BP 113/52
[2021-04-25] MEDS ORDERED: ONDA-83 PO (17:46)
[2021-04-25] MEDS ORDERED: DOCUSATE SODIUM 100MG CAPSULE PO SCH (21:00)
[2021-04-25] MEDS ORDERED: ACETAMINOPHEN 500 MG TAB PO SCH (22:00)
== END 2021-04-25 18:55 | disposition home or self-care (01) ==
LOC: M SDC 08:46 → M MSPAV 14:30 → M SDC 18:55
PROVIDERS: ATTEND Obstetrics & Gynecology
DX: N93.9 Abnormal uterine and vaginal bleeding, unspecified (principal); N72 Inflammatory disease of cervix uteri; J45.909 Unspecified asthma, uncomplicated; Z79.899 Other long term (current) drug therapy; Z88.0 Allergy status to penicillin; Z88.8 Allergy status to other drugs, medicaments and biological substances; Z88.1 Allergy status to other antibiotic agents; F41.9 Anxiety disorder, unspecified; F32.9 Major depressive disorder, single episode, unspecified; D64.9 Anemia, unspecified; Z98.84 Bariatric surgery status; Z87.891 Personal history of nicotine dependence
CPT/HCPCS: 36415; 58571; 84703; 85027; 86850; 86900; 86901; 88307; 96374; J0131; J0690; J1100; J1170; J2250; J2405; J2765; J3010; Q9968; S2900

== ENCOUNTER 2023-01-14 11:45 | Emergency (ER) | payer OTHER ==
[~2023-01-14] VITALS: Ht 154.9 cm; Wt 98.5 kg
[~2023-01-14 11:45] MED LIST changes: +COLA100C5 PO; -LIDOCAINE 1% MDV 20ML VIAL SQ PRN; -LR 1,000 ML IV ONE; +ONDA-83 PO; +PERCOCET PO; -ceFAZolin SOD 2 GM in IV 1 EA IV ONE
[2023-01-14] MEDS ORDERED: CLIN-250 (12:01)
[2023-01-14] MEDS ORDERED: CLEO300C2 PO (16:26)
[2023-01-14] MEDS ORDERED: TRAM50TA2 PO (16:26)
[2023-01-14 16:31] VITALS: BP 138/80; TEMP 99; O2SAT 100
== END 2023-01-14 16:45 | disposition home or self-care (01) ==
LOC: M ED 11:45
DX: K04.7 Periapical abscess without sinus (principal); J45.909 Unspecified asthma, uncomplicated; R68.84 Jaw pain; S02.5XXA Fracture of tooth (traumatic), initial encounter for closed fracture; X58.XXXA Exposure to other specified factors, initial encounter; Y92.89 Other specified places as the place of occurrence of the external cause; Z88.0 Allergy status to penicillin; Z88.8 Allergy status to other drugs, medicaments and biological substances; Z88.2 Allergy status to sulfonamides; Z88.1 Allergy status to other antibiotic agents

== ENCOUNTER → 2024-11-02 | Outpatient (REF) | payer OTHER ==
[~2024-11-02] MED LIST changes: +CLEO300C2 PO; +CLIN-250; +CLON-412; +LAMO100T3; +ONDA-84 PO; +QUET100T2; +TRAM50TA2 PO
[2024-11-02 22:30] LABS: Trichomonas vaginalis (AMP) NOT DETECTED (NEGATIVE)
[2024-11-02 22:54] LABS: GC DNA AMPLIFICATION NEGATIVE (NEGATIVE)
== END ==
LOC: M SFHCWAGY 17:44
PROVIDERS: ATTEND Advanced Practice Midwife
DX: Z01.419 Encounter for gynecological examination (general) (routine) without abnormal findings (principal); Z11.3 Encounter for screening for infections with a predominantly sexual mode of transmission